=== PATIENT | male | born 1985 | race African-American/Black ===

== ENCOUNTER 2017-06-23 17:27 | Emergency (ER) | payer OTHER ==
--- NOTE | 2017-06-23 18:50 | EDM.PDOC ---
ED HPI GENERAL MEDICAL PROBLEM - General Chief Complaint: Upper Extremity Injury/Pain Stated Complaint: PT HURT RT ARM Time Seen by Provider: 06/23/17 18:46 - History of Present Illness INITIAL COMMENTS - FREE TEXT/NARRATIVE: HISTORY AND PHYSICAL: History of present illness: Patient 31-year-old black male presents 24 status post fall which injured his right elbow comes now with pain and swelling of his right elbow slightly limited range of motion secondary to pain he denies other trauma or concern Review of systems: As per history of present illness and below otherwise all systems reviewed and negative. Past medical history: As per history of present illness and as reviewed below otherwise noncontributory. Surgical history: As per history of present illness and as reviewed below otherwise noncontributory. Social history: No reported history of drug or alcohol abuse. Family history: As per history of present illness and as reviewed below otherwise noncontributory. Physical exam: HEENT: Atraumatic, normocephalic, pupils reactive, negative for conjunctival pallor or scleral icterus, mucous membranes moist, throat clear, neck supple, nontender, trachea midline. Lungs: Clear to auscultation, breath sounds equal bilaterally, chest nontender. Heart: S1S2, regular, negative for clicks, rubs, or JVD. Abdomen: Soft, nondistended, nontender. Negative for masses or hepatosplenomegaly. Negative for costovertebral tenderness. Pelvis: Stable nontender. Genitourinary: Deferred. Rectal: Deferred. Extremities: Patient has small to moderate swelling posteriorly of his right elbow with limited range of motion secondary pain is no crepitation noted CMS neurovascular exams unremarkable Neuro: Awake, alert, oriented. Cranial nerves II through XII unremarkable. Cerebellum unremarkable. Motor and sensory unremarkable throughout. Exam nonfocal. Diagnostics: X-ray right elbow Therapeutics: To be determined Impression: #1 acute right elbow injury Definitive disposition and diagnosis as appropriate pending reevaluation and review of above. Right Arm Pain Score (Numeric/FACES): 10 - Related Data Allergies Allergy/AdvReac Type Severity Reaction Status Date / Time No Known Allergies Allergy Verified 08/09/14 11:56 Home Meds: Home Meds . [No Known Home Meds] 08/09/14 [History] Past Medical History - Past Health History Medical/Surgical History: Denies Medical/Surgical History Social & Family History - Family History Family Medical History: Noncontributory - Tobacco Use Smoking Status *Q: Never Smoker Second Hand Smoke Exposure: No - Caffeine Use Caffeine Use: Reports: None - Alcohol Use Days Per Week of Alcohol Use: 0 - Recreational Drug Use Recreational Drug Use: No Review of Systems - Review of Systems Review Of Systems: ROS reveals no pertinent complaints other than HPI. ED EXAM, GENERAL - Physical Exam Exam: See Below (See dictation) Course - Vital Signs Last Recorded V/S: Last Vital Signs Temp 36.8 C 06/23/17 18:16 Pulse 58 L 06/23/17 18:16 Resp 14 06/23/17 18:16 BP 116/80 06/23/17 18:16 Pulse Ox 97 06/23/17 18:16 - Orders/Labs/Meds Orders: Active Orders 24 hr Category Date Time Status Elbow Min 3V Rt [CR] Stat Exams 06/23/17 18:48 Taken Departure - Departure Time of Disposition: 19:29 Disposition: Home, Self-Care 01 Condition: Good Clinical Impression: Fracture of radius - Discharge Information Referrals: PCP,None [Primary Care Provider] - Forms: ED Department Discharge Additional Instructions: The following information is given to patients seen in the emergency department who are being discharged to home. This information is to outline your options for follow-up care. We provide all patients seen in our emergency department with a follow-up referral. The need for follow-up, as well as the timing and circumstances, are variable depending upon the specifics of your emergency department visit. If you don't have a primary care physician on staff, we will provide you with a referral. We always advise you to contact your personal physician following an emergency department visit to inform them of the circumstance of the visit and for follow-up with them and/or the need for any referrals to a consulting specialist. The emergency department will also refer you to a specialist when appropriate. This referral assures that you have the opportunity for followup care with a specialist. All of these measure are taken in an effort to provide you with optimal care, which includes your followup. Under all circumstances we always encourage you to contact your private physician who remains a resource for coordinating your care. When calling for followup care, please make the office aware that this follow-up is from your recent emergency room visit. If for any reason you are refused follow-up, please contact the [facility] emergency department at and asked to speak to the emergency department charge nurse. [facility] - Orth[facility] Professional [address], [address] [place] [address] Posterior mold sling as directed Ultram as prescribed follow-up orthopedic clinic above is discussed call to schedule appointment return as needed as discussed - My Orders Last 24 Hours: My Active Orders 06/23/17 18:48 Elbow Min 3V Rt [CR] Stat - Assessment/Plan Last 24 Hours: My Active Orders 06/23/17 18:48 Elbow Min 3V Rt [CR] Stat
--- NOTE | 2017-06-25 06:14 | CR ---
EXAM DATE: 06/23/17 PATIENT'S AGE: 31 Patient: NIXON RAND Facility: [place], [place] Site . Site : 1985 Study: XRay Extremity elbow [id number]/24/2017 7:09:12 PM Ordering Physician: Blake Rangel Final Report: HISTORY: Fall, unable to straighten elbow. FINDINGS: Three views of the right elbow demonstrate an anterior sail sign and elevated posterior fat pad compatible with joint effusion. There is a intraarticular nondisplaced vertical fracture seen through the radial head extending to the radial neck. The distal humerus and ulna are intact. IMPRESSION: Vertical, nondisplaced intra-articular radial head fracture with extension to the neck. Dictated by Yolis Galdamez MD @ 06/23/2017 7:23:12 PM Dictated by: Yolis Galdamez MD @ 06/23/2017 19:23:16 (Electronic Signature) Report Signed by Proxy. [facility]
== END 2017-06-23 20:03 | disposition home or self-care (01) ==
LOC: MW.ED 17:27
DX: S52.124A Nondisplaced fracture of head of right radius, initial encounter for closed fracture (principal); W19.XXXA Unspecified fall, initial encounter
CPT/HCPCS: 29125; 73080-26-RT; 73080-RT; 99283

== ENCOUNTER 2017-12-19 21:07 | Emergency (ER) | payer OTHER ==
[2017-12-19] MEDS ORDERED: Ondansetron 4 MG/2 ML SDV IVPUSH ONE (21:14)
[2017-12-19] MEDS ORDERED: Sodium Chloride 0.9% 1,000 ML IV ONE (21:14)
[2017-12-19] MEDS ORDERED: Ketorolac 30 MG/ML SDV IVPUSH ONE (21:14)
--- NOTE | 2017-12-19 21:15 | EDM.PDOC ---
ED HPI GENERAL MEDICAL PROBLEM - General Chief Complaint: Abdominal Pain Stated Complaint: STOMACH PAIN Time Seen by Provider: 12/19/17 21:15 Source of Information: Reports: Patient - History of Present Illness INITIAL COMMENTS - FREE TEXT/NARRATIVE: HISTORY AND PHYSICAL: History of present illness: [Patient presents with abdominal pain 4 out of 10 diffuse nonfocal., He has not had any fever nausea vomiting chills sweats he is had a bowel movement at 7 PM tonight with some improvement No chest pain shortness breath headache dizziness palpitation no urine symptoms Review of systems: As per history of present illness and below otherwise all systems reviewed and negative. Past medical history: As per history of present illness and as reviewed below otherwise noncontributory. Surgical history: As per history of present illness and as reviewed below otherwise noncontributory. Social history: No reported history of drug or alcohol abuse. Family history: As per history of present illness and as reviewed below otherwise noncontributory. Physical exam: HEENT: Atraumatic, normocephalic, pupils reactive, negative for conjunctival pallor or scleral icterus, mucous membranes moist, throat clear, neck supple, nontender, trachea midline. Lungs: Clear to auscultation, breath sounds equal bilaterally, chest nontender. Heart: S1S2, regular, negative for clicks, rubs, or JVD. Abdomen: Soft, nondistended, nontender. Negative for masses or hepatosplenomegaly. Negative for costovertebral tenderness. Pelvis: Stable nontender. Genitourinary: Deferred. Rectal: Deferred. Extremities: Atraumatic, negative for cords or calf pain. Neurovascular unremarkable. Neuro: Awake, alert, oriented. Cranial nerves II through XII unremarkable. Cerebellum unremarkable. Motor and sensory unremarkable throughout. Exam nonfocal. Diagnostics: [CBC CMP UA lipase Flat and upright abdomen ] Therapeutics: [1 L normal saline bolus Toradol 30 mg IV Reglan 10 mg IV Reglan 10 mg by mouth 3 times a day when necessary #30 no refill MiraLAX daily until clear Clear liquid diet 12-24 hours glycerin suppositories fleets discussed ] Impression: [ constipation] Definitive disposition and diagnosis as appropriate pending reevaluation and review of above. Abdominal Pain Score (Numeric/FACES): 10 - Related Data Allergies Allergy/AdvReac Type Severity Reaction Status Date / Time No Known Allergies Allergy Verified 12/19/17 21:23 Home Meds: Home Meds . [No Known Home Meds] 08/09/14 [History] Past Medical History - Past Health History Medical/Surgical History: Denies Medical/Surgical History Social & Family History - Family History Family Medical History: Noncontributory - Caffeine Use Caffeine Use: Reports: None ED ROS GENERAL - Review of Systems Review Of Systems: See Below ED EXAM, GENERAL - Physical Exam Exam: See Below Course - Vital Signs Last Recorded V/S: Last Vital Signs Temp 97.5 F 12/19/17 21:23 Pulse 55 L 12/19/17 21:23 Resp 18 12/19/17 21:23 BP 110/61 12/19/17 21:23 Pulse Ox 98 12/19/17 21:23 - Orders/Labs/Meds Orders: Active Orders 24 hr Category Date Time Status Abdomen 2V AP Flat Upright [CR] Stat Exams 12/19/17 21:58 Taken UA W/MICROSCOPIC [URIN] Stat Lab 12/19/17 21:33 Ordered Labs: Laboratory Tests 12/19/17 12/19/17 12/19/17 Range/Units 21:22 21:22 21:33 WBC 4.36 (4.0-11.0) K/uL RBC 5.04 (4.50-5.90) M/uL Hgb 15.1 (13.0-17.0) g/dL Hct 42.9 (38.0-50.0) % MCV 85.1 (80.0-98.0) fL MCH 30.0 (27.0-32.0) pg MCHC 35.2 (31.0-37.0) g/dL RDW Std Deviation 39.4 (28.0-62.0) fl RDW Coeff of Shakira 13 (11.0-15.0) % Plt Count 196 (150-400) K/uL MPV 10.20 (7.40-12.00) fL Neut % (Auto) 37.8 L (48.0-80.0) % Lymph % (Auto) 52.1 H (16.0-40.0) % [place] % (Auto) 6.9 (0.0-15.0) % Eos % (Auto) 2.3 (0.0-7.0) % Baso % (Auto) 0.9 (0.0-1.5) % Neut # (Auto) 1.7 (1.4-5.7) K/uL Lymph # (Auto) 2.3 (0.6-2.4) K/uL [place] # (Auto) 0.3 (0.0-0.8) K/uL Eos # (Auto) 0.1 (0.0-0.7) K/uL Baso # (Auto) 0.0 (0.0-0.1) K/uL Nucleated RBC % 0.0 /100WBC Nucleated RBCs # 0 K/uL Sodium 140 (136-148) mmol/L Potassium 3.6 (3.5-5.1) mmol/L Chloride 108 H (98-107) mmol/L Carbon Dioxide 26.6 (21.0-32.0) mmol/L BUN 11 (7.0-18.0) mg/dL Creatinine 1.2 (0.8-1.3) mg/dL Est Cr Clr Drug Dosing 81.86 mL/min Estimated GFR (MDRD) > 60.0 ml/min Glucose 103 (74-106) mg/dL Calcium 8.5 (8.5-10.1) mg/dL Total Bilirubin 1.2 H (0.2-1.0) mg/dL AST 22 (15-37) IU/L ALT 27 (14-63) IU/L Alkaline Phosphatase 79 (46-116) U/L Troponin I < 0.050 (0.000-0.056) ng/mL Total Protein 6.9 (6.4-8.2) g/dL Albumin 3.7 (3.4-5.0) g/dL Globulin 3.2 (2.0-3.5) g/dL Albumin/Globulin Ratio 1.2 L (1.3-2.8) Lipase 153 (73-393) U/L Urine Color YELLOW Urine Appearance CLEAR Urine pH 6.5 (5.0-8.0) Ur Specific [place] 1.025 (1.001-1.035) Urine Protein NEGATIVE (NEGATIVE) mg/dL Urine Glucose (UA) NEGATIVE (NEGATIVE) mg/dL Urine Ketones NEGATIVE (NEGATIVE) mg/dL Urine Occult Blood NEGATIVE (NEGATIVE) Urine Nitrite NEGATIVE (NEGATIVE) Urine Bilirubin NEGATIVE (NEGATIVE) Urine Urobilinogen 1.0 (<2.0) EU/dL Ur Leukocyte Esterase NEGATIVE (NEGATIVE) Urine RBC 0-1 (0-2/HPF) Urine WBC 0-1 (0-5/HPF) Ur Epithelial Cells RARE (NONE-FEW) Urine Bacteria RARE (NEGATIVE) Meds: Medications Discontinued Medications Generic Name Dose Route Start Last Admin Trade Name Anibalq PRN Reason Stop Dose Admin Sodium Chloride 1,000 mls @ 999 mls/hr 12/19/17 21:14 12/19/17 21:28 Normal Saline IV 12/19/17 22:14 999 mls/hr STAT ONE Administration Ketorolac Tromethamine 30 mg 12/19/17 21:14 12/19/17 21:29 Toradol IVPUSH 12/19/17 21:15 30 mg ONETIME ONE Administration Ondansetron HCl 8 mg 12/19/17 21:14 12/19/17 21:29 Zofran IVPUSH 12/19/17 21:15 8 mg ONETIME ONE Administration Pantoprazole Sodium 80 mg 12/19/17 21:24 12/19/17 21:45 Protonix Iv IVPUSH 12/19/17 21:25 80 mg .BOLUS ONE Administration Departure - Departure Time of Disposition: 23:09 Disposition: Home, Self-Care 01 Condition: Good Clinical Impression: Constipation - Discharge Information Referrals: PCP,None [Primary Care Provider] - Forms: ED Department Discharge Additional Instructions: Clear liquid diet until bowels are clear--water and Gatorade 12-24 hours Gas-X 4 times daily as needed MiraLAX 1 packet daily until bowels are clear Medication as prescribed Follow-up with primary care if symptoms persist or worsen [facility] [address] [place] [id number] The following information is given to patients seen in the emergency department who are being discharged to home. This information is to outline your options for follow-up care. We provide all patients seen in our emergency department with a follow-up referral. The need for follow-up, as well as the timing and circumstances, are variable depending upon the specifics of your emergency department visit. If you don't have a primary care physician on staff, we will provide you with a referral. We always advise you to contact your personal physician following an emergency department visit to inform them of the circumstance of the visit and for follow-up with them and/or the need for any referrals to a consulting specialist. The emergency department will also refer you to a specialist when appropriate. This referral assures that you have the opportunity for follow-up care with a specialist. All of these measure are taken in an effort to provide you with optimal care, which includes your follow-up. Under all circumstances we always encourage you to contact your private physician who remains a resource for coordinating your care. When calling for follow-up care, please make the office aware that this follow-up is from your recent emergency room visit. If for any reason you are refused follow-up, please contact the [facility] emergency department at and asked to speak to the emergency department charge nurse. - My Orders Last 24 Hours: My Active Orders 12/19/17 21:33 UA W/MICROSCOPIC [URIN] Stat 12/19/17 21:58 Abdomen 2V AP Flat Upright [CR] Stat - Assessment/Plan Last 24 Hours: My Active Orders 12/19/17 21:33 UA W/MICROSCOPIC [URIN] Stat 12/19/17 21:58 Abdomen 2V AP Flat Upright [CR] Stat
[2017-12-19] MEDS ORDERED: Pantoprazole 40 MG Vial IVPUSH ONE (21:24)
[2017-12-19 21:54] LABS: CHLORIDE,CL 108 mmol/L (98-107); SODIUM,NA 140 mmol/L (136-148)
--- NOTE | 2017-12-20 14:58 | CR ---
EXAM DATE: 12/19/17 PATIENT'S AGE: 32 Patient: NIXON RAND Facility: [place], [place] Site . Site : 1985 Study: XRay Abdomen [id number]/22/2018 10:27:53 PM Ordering Physician: Darrian Robledo Final Report: INDICATION: Umbilical region abdominal pain. COMPARISON: None. FINDINGS/IMPRESSION: Large amount of stool throughout the colon suggesting constipation. Otherwise unremarkable bowel gas pattern. No free air identified. Calcified granulomas in the lung bases and over the region of the spleen. Unremarkable bony structures. Dictated by Rene Diaz MD @ 12/19/2017 10:46:44 PM Dictated by: Rene Diaz MD @ 12/19/2017 22:47:53 (Electronic Signature) Report Signed by Proxy. [facility]
== END 2017-12-19 23:10 | disposition home or self-care (01) ==
LOC: MW.ED 21:07
DX: K59.00 Constipation, unspecified (principal)
CPT/HCPCS: 36415; 74019; 80053; 81001; 83690; 84484; 85025; 96361; 96374; 96375; 99284; C9113; J1885; J2405; J7040